=== PATIENT | female | born 1935 | race Two or more races ===

== ENCOUNTER 2023-02-17 16:19 | Emergency (ER) | payer OTHER ==
[~2023-02-17] VITALS: Ht 152.4 cm; Wt 54.4 kg
[2023-02-17] MEDS ORDERED: LOSARTAN-HCTZ1 EAC2 PO (16:47)
[2023-02-17] MEDS ORDERED: AMLODIPINE BESY10 MG PO (16:47)
[2023-02-17] MEDS ORDERED: TRAZODONE HCL50 MG PO (16:47)
[2023-02-17] MEDS ORDERED: MEMANTINE HCL E14 MG (16:48)
[2023-02-17] MEDS ORDERED: ST. JOSEPH ASPI81 M2 PO (16:48)
[2023-02-17] MEDS ORDERED: QUETIAPINE FUMA25 MG PO (16:48)
[2023-02-17] MEDS ORDERED: ROSUVASTATIN CA10 MG PO (16:48)
== END 2023-02-17 18:50 | disposition home or self-care (01) ==
LOC: ER 16:19
DX: H11.32 Conjunctival hemorrhage, left eye (principal)